=== PATIENT | female | born 1960 | race Two or more races ===

== ENCOUNTER 2021-03-09 13:41 | Inpatient (IN) | payer OTHER ==
[2021-03-09] MEDS ORDERED: SODIUM CHLORIDE 1,000 ML IV STA ×2 (14:07→14:27)
[2021-03-09 14:45] LABS: BASO % 0.8 % (0-2.0); EOS % 0.2 % (0-4.5); HEMATOCRIT 41.6 % (32.4-45.2); HEMOGLOBIN 13.5 GM/dL (10.7-15.3); MCH 27.9 pg (25.7-33.7); MCHC 32.5 g/dl (32.0-36.0); MONO % 7.4 % (3.8-10.2); NEUT % 74.6 % (42.8-82.8); PH,URINE 6.5 (5.0-8.0); PLATELET COUNT 360 10^3/uL (134-434); RBC 4.84 M/mm3 (3.60-5.2); URINE APPEARANCE CLEAR; URINE BILIRUBIN NEGATIVE (NEGATIVE); URINE COLOR YELLOW; URINE GLUCOSE (UA) 3+ (NEGATIVE); URINE KETONE NEGATIVE (NEGATIVE); URINE LEUK ESTERASE NEGATIVE (NEGATIVE); URINE NITRITE NEGATIVE (NEGATIVE); URINE PROTEIN NEGATIVE (NEGATIVE); URINE UROBILINOGEN 0.2 mg/dL (0.2-1.0); WHITE BLOOD COUNT 11.4 K/mm3 (4.0-10.0)
[2021-03-09 14:46] LABS: VENOUS O2 SATURATION 79.8 % (70-80); VENOUS PCO2 40.2 mmHg (38-52); VENOUS PH 7.343 (7.310-7.410)
[2021-03-09 14:52] LABS: INR 0.91 (0.83-1.09); PROTHROMBIN TIME (PATIENT) 11.1 SEC (9.7-13.0)
[2021-03-09 14:55] LABS: ACTIVATED PTT 25.4 SECONDS (25.2-36.5)
[2021-03-09 15:02] LABS: CHLORIDE 93 mmol/L (98-107); SODIUM 124 mmol/L (136-145)
[2021-03-09 15:05] LABS: ALBUMIN 4.2 g/dl (3.4-5.0); BLOOD UREA NITROGEN 25.2 mg/dL (7-18); CALCIUM 10.2 mg/dL (8.5-10.1); CO2 23 mmol/L (21-32); MAGNESIUM 2.5 mg/dL (1.8-2.4)
[2021-03-09 15:08] LABS: CREATININE 1.4 mg/dL (0.55-1.3); SGOT/AST 20 U/L (15-37); SGPT/ALT 48 U/L (13-61)
[2021-03-09 15:09] LABS: BILIRUBIN,TOTAL 0.4 mg/dL (0.2-1); PHOSPHOROUS 3.4 mg/dL (2.5-4.9)
[2021-03-09 15:10] LABS: TOT PROT 7.8 g/dl (6.4-8.2)
[2021-03-09 15:11] LABS: ALK PHOS 107 U/L (45-117)
[2021-03-09 15:12] LABS: ANION GAP 8 MMOL/L (8-16); GLUCOSE,RANDOM 836 mg/dL (74-106)
[2021-03-09] MEDS ORDERED: INSULIN REGULAR HUMAN 100 UNITS/ML *VIAL SQ ONE ×3 (15:19→17:42)
[2021-03-09 16:04] LABS: CHLORIDE 101 mmol/L (98-107); SODIUM 131 mmol/L (136-145)
[2021-03-09 16:05] LABS: CALCIUM 9.1 mg/dL (8.5-10.1); CO2 21 mmol/L (21-32)
[2021-03-09 16:06] LABS: BLOOD UREA NITROGEN 22.4 mg/dL (7-18)
[2021-03-09 16:12] LABS: ANION GAP 9 MMOL/L (8-16); GLUCOSE,RANDOM 590 mg/dL (74-106)
[2021-03-09] MEDS ORDERED: FAMOTIDINE 20 MG/50 ML IVPB 20 MG/50 ML MG IVPB ONE ×3 (16:17→16:49)
[2021-03-09] MEDS ORDERED: CALCIUM GLUCONATE 10% - 1,000 MG/10 ML VIAL IVPUSH ONE ×2 (16:37→17:37)
[2021-03-09] MEDS ORDERED: ALBUTEROL SO4 0.5 % INH SOLN 2.5 MG/0.5 ML VIAL.NEB. NEB ONE (16:37)
[2021-03-09] MEDS ORDERED: SODIUM POLYSTYRENE SULFONATE 15 GM/60 ML BOTTLE PO ONE (16:38)
[2021-03-09] MEDS ORDERED: CALCIUM GLUCONATE 10% - 1,000 MG/10 ML VIAL ONE ×2 (16:49→17:40)
[2021-03-09] MEDS ORDERED: SODIUM POLYSTYRENE SULFONATE 15 GM/60 ML BOTTLE ONE (16:49)
[2021-03-09] MEDS ORDERED: DEXTROSE 50%-WATER - 25 GM/50 ML VIAL IVPUSH ONE (17:42)
[2021-03-09] MEDS ORDERED: DEXTROSE 50%-WATER 25 GM/50 ML DISP.SYRIN ONE (17:46)
[2021-03-09] MEDS ORDERED: SODIUM CHLORIDE 1,000 ML IV SCH (18:45)
[2021-03-09 20:06] LABS: CHLORIDE 101 mmol/L (98-107); SODIUM 135 mmol/L (136-145)
[2021-03-09 20:07] LABS: CALCIUM 9.5 mg/dL (8.5-10.1)
[2021-03-09 20:08] LABS: ANION GAP 10 MMOL/L (8-16); CO2 23 mmol/L (21-32)
[2021-03-09 20:15] LABS: GLUCOSE,RANDOM 534 mg/dL (74-106)
[2021-03-09] MEDS: INSULIN SLIDING SCALE (NOVOLOG) 1 VIAL SQ SCH (22:09)
[2021-03-09] MEDS: INSULIN (LEVEMIR) 100 UNITS/ML UNITS SQ SCH (22:09)
[2021-03-10 08:00] LABS: HEMATOCRIT 35.6 % (32.4-45.2); HEMOGLOBIN 11.9 GM/dL (10.7-15.3); MCH 28.2 pg (25.7-33.7); MCHC 33.4 g/dl (32.0-36.0); MEAN CELL VOLUME 84.2 fl (80-96); MEAN PLT VOLUME 8.3 fl (7.5-11.1); PLATELET COUNT 272 10^3/uL (134-434); RBC 4.23 M/mm3 (3.60-5.2); RDW 12.8 % (11.6-15.6); WHITE BLOOD COUNT 7.5 K/mm3 (4.0-10.0)
[2021-03-10] MEDS: INSULIN SLIDING SCALE (NOVOLOG) 1 VIAL SQ SCH ×4 (08:00→21:19)
[2021-03-10] MEDS: INSULIN (LEVEMIR) 100 UNITS/ML UNITS SQ SCH ×2 (08:00→21:19)
[2021-03-10 08:20] LABS: BLOOD UREA NITROGEN 22.5 mg/dL (7-18); CALCIUM 8.6 mg/dL (8.5-10.1)
[2021-03-10 08:22] LABS: BILIRUBIN,TOTAL 0.6 mg/dL (0.2-1)
[2021-03-10 08:23] LABS: CREATININE 0.7 mg/dL (0.55-1.3); PHOSPHOROUS 3.6 mg/dL (2.5-4.9)
[2021-03-10 08:24] LABS: TOT PROT 6.1 g/dl (6.4-8.2)
[2021-03-10 08:30] LABS: ALBUMIN 3.3 g/dl (3.4-5.0)
[2021-03-10] MEDS ORDERED: ENOXAPARIN NA (PORCINE) 30 MG/0.3 ML DISP.SYRIN SQ SCH (10:00)
[2021-03-10] MEDS ORDERED: ALBUTEROL SO4 0.083% IH SOL 2.5 MG/3 ML VIAL.NEB. NEB PRN (15:51)
[2021-03-10] MEDS ORDERED: INSULIN (NOVOLOG) ASPART 100 UNITS/ML 10ML VIAL ONE (21:06)
[2021-03-11] MEDS: INSULIN SLIDING SCALE (NOVOLOG) 1 VIAL SQ SCH ×4 (06:02→21:40)
[2021-03-11] MEDS: INSULIN (LEVEMIR) 100 UNITS/ML UNITS SQ SCH ×2 (06:02→21:39)
[2021-03-11 07:08] LABS: HEMATOCRIT 36.6 % (32.4-45.2); HEMOGLOBIN 12.3 GM/dL (10.7-15.3); MCHC 33.7 g/dl (32.0-36.0); MEAN CELL VOLUME 82.9 fl (80-96); MEAN PLT VOLUME 8.5 fl (7.5-11.1); PLATELET COUNT 275 10^3/uL (134-434); RBC 4.41 M/mm3 (3.60-5.2); RDW 12.8 % (11.6-15.6); WHITE BLOOD COUNT 6.3 K/mm3 (4.0-10.0)
[2021-03-11 07:37] LABS: CALCIUM 8.3 mg/dL (8.5-10.1)
[2021-03-11 07:38] LABS: BLOOD UREA NITROGEN 19.7 mg/dL (7-18)
[2021-03-11 07:41] LABS: CREATININE 0.6 mg/dL (0.55-1.3)
[2021-03-11] MEDS: ENOXAPARIN NA (PORCINE) 40 MG/0.4 ML DISP.SYRIN SQ SCH (10:36)
[2021-03-11] MEDS ORDERED: INSULIN (LEVEMIR) 100 UNITS/ML UNITS SQ ONE (12:28)
[2021-03-11] MEDS ORDERED: INSULIN (NOVOLOG) ASPART 100 UNITS/ML 10ML VIAL ONE ×2 (17:14→21:29)
[2021-03-11 17:20] VITALS: BMI 35.0
[2021-03-11] MEDS: ATORVASTATIN CA 40 MG TABLET (FP) PO SCH (21:39)
[2021-03-12] MEDS: INSULIN (LEVEMIR) 100 UNITS/ML UNITS SQ SCH ×2 (06:03→21:27)
[2021-03-12] MEDS: INSULIN SLIDING SCALE (NOVOLOG) 1 VIAL SQ SCH ×4 (06:03→21:28)
[2021-03-12 08:48] LABS: BLOOD UREA NITROGEN 20.9 mg/dL (7-18); CALCIUM 8.3 mg/dL (8.5-10.1)
[2021-03-12 08:51] LABS: CREATININE 0.7 mg/dL (0.55-1.3)
[2021-03-12] MEDS: ENOXAPARIN NA (PORCINE) 40 MG/0.4 ML DISP.SYRIN SQ SCH (09:31)
[2021-03-12] MEDS: ATORVASTATIN CA 40 MG TABLET (FP) PO SCH (21:28)
[2021-03-13 03:59] VITALS: TEMP 97.7
[2021-03-13] MEDS: INSULIN (LEVEMIR) 100 UNITS/ML UNITS SQ SCH (06:29)
[2021-03-13] MEDS: INSULIN SLIDING SCALE (NOVOLOG) 1 VIAL SQ SCH ×2 (06:30→12:40)
[2021-03-13 07:44] LABS: CALCIUM 9.5 mg/dL (8.5-10.1)
[2021-03-13 07:49] LABS: BLOOD UREA NITROGEN 22.4 mg/dL (7-18); CREATININE 0.7 mg/dL (0.55-1.3)
[2021-03-13 08:29] VITALS: BP 128/73; PULSE 70
[2021-03-13] MEDS: ENOXAPARIN NA (PORCINE) 40 MG/0.4 ML DISP.SYRIN SQ SCH (10:08)
== END 2021-03-13 13:48 | disposition home or self-care (01) | DRG 425 ==
LOC: JER 13:41 → JERBED 14:05 → J4W 03-10 10:29
PROVIDERS: ADMIT Student in an Organized Health Care Education/Training Program; ATTEND Student in an Organized Health Care Education/Training Program
DX: E87.5 Hyperkalemia (principal); E11.65 Type 2 diabetes mellitus with hyperglycemia; E66.9 Obesity, unspecified; Z68.35 Body mass index [BMI] 35.0-35.9, adult; E87.1 Hypo-osmolality and hyponatremia; N17.9 Acute kidney failure, unspecified; I48.91 Unspecified atrial fibrillation; R00.0 Tachycardia, unspecified; J45.909 Unspecified asthma, uncomplicated; Z79.4 Long term (current) use of insulin
CPT/HCPCS: 36415; 71045-TC-FY; 80048; 80053; 80061; 81003; 82010; 82043; 82550; 82570; 82803; 82962; 83036; 83721; 83735; 84100; 84443; 84484; 85025; 85027; 85610; 85730; 87086; 93005; 93010; 93225; 93226; 93306-TC; 99285-25; C9803; U0003; U0005